=== PATIENT | female | born 1965 | race American Indian/Alaskan Native ===

== ENCOUNTER 2017-12-24 13:21 | Emergency (ER) | payer MEDICAID ==
[2017-12-24 13:22] VITALS: BMI 30.9
[2017-12-24 14:40] LABS: GRANULAR CAST 1 /lpf (0-1); SQUAMOUS EPITHIAL 3 /hpf (0-5); URINE BACTERIA RARE (<OCC); URINE BILIRUBIN NEGATIVE (NEGATIVE); URINE BLOOD NEGATIVE (NEGATIVE); URINE CLARITY Clear (Clear); URINE COLOR Yellow (YELLOW); URINE GLUCOSE (UA) 1+ mg/dL (Normal); URINE LEUKOCYTE ESTERASE NEG Leu/uL (Negative); URINE PROTEIN 1+ mg/dL (NEGATIVE)
[2017-12-24 14:43] LABS: BASO # 0.1 K/uL (0.0-0.2); BASO % 0.9 % (0.0-2.0); EOS % 0.3 % (0.0-4.0); HEMOGLOBIN 14.5 g/dL (11.0-16.0); LYMPH # 1.7 K/uL (1.0-4.3); LYMPH % 22.1 % (20.0-40.0); MEAN CELL VOLUME 103.3 fL (81.0-99.0); MEAN CORPUSCULAR HEMOGLOBIN 36.2 pg (27.0-31.0); MEAN CORPUSCULAR HGB CONC 35.1 g/dL (33.0-37.0); MEAN PLATELET VOLUME 7.6 fL (7.2-11.7); MONO # 0.4 K/uL (0.0-0.8); MONO % 5.2 % (0.0-10.0); NEUT # 5.6 K/uL (1.8-7.0); NEUT % 71.5 % (50.0-75.0); RBC 4.01 Mil/uL (3.80-5.20); RED CELL DISTRIBUTION WIDTH 13.5 % (11.5-14.5); WHITE BLOOD COUNT 7.8 K/uL (4.8-10.8)
[2017-12-24 14:49] LABS: BARBITURATES, UR NEGATIVE (NEGATIVE); BENZODIAZEPINES, UR NEGATIVE (NEGATIVE); OPIATES, UR NEGATIVE (NEGATIVE); PHENCYCLIDINE, UR NEGATIVE (NEGATIVE)
[2017-12-24 14:57] LABS: ALB/GLOB RATIO 1.3 (1.0-2.1); ALBUMIN 4.6 g/dL (3.5-5.0); ALT/SGPT 87 U/L (9-52); AST/SGOT 127 U/L (14-36); BLOOD UREA NITROGEN 6 mg/dL (7-17); CALCIUM 8.3 mg/dl (8.6-10.4); GFR AFRICAN-AMERICAN > 60; GFR NON-AFRICAN AMERICAN > 60
[2017-12-24 15:26] VITALS: BP 170/122; PULSE 91; RESP 16; TEMP 98.8; O2SAT 98
--- NOTE | 2017-12-24 15:52 | C.PDOC ---
History Of Present Illness Pt c/o feeling depressed, but denies SI. She states that she has been drinking alcohol more than usual (half a bottle of wine a day), but her last drink was 4 days ago. She has not taken her BP medications for 4 days because she is visiting her sister her and she forgot them at home. Time Seen by Provider: 12/24/17 13:53 Chief Complaint (Nursing): Psychiatric Evaluation History Per: Patient, Family Onset/Duration Of Symptoms: Days (about 2 weeks) Current Symptoms Are (Timing): Still Present Suicide/Self Injury Attempted (Context): None Modifying Factor(s): Alcohol Severity: Moderate Associated Symptoms: Depression. denies: Suicidal Thoughts, Suicidal Plan Additional History Per: Prior Records Past Medical History Reviewed: Historical Data, Nursing Documentation, Vital Signs Vital Signs: Last Vital Signs Temp 98.8 F 12/24/17 15:26 Pulse 91 H 12/24/17 15:26 Resp 16 12/24/17 15:26 BP 170/122 H 12/24/17 15:26 Pulse Ox 98 12/24/17 15:26 - Medical History PMH: Depression, Diabetes, HTN Family History: States: Unknown Family Hx - Social History Hx Tobacco Use: Yes Hx Alcohol Use: Yes Hx Substance Use: No - Immunization History Hx Tetanus Toxoid Vaccination: Yes Hx Influenza Vaccination: Yes Hx Pneumococcal Vaccination: Yes Review Of Systems Except As Marked, All Systems Reviewed And Found Negative. Constitutional: Negative for: Fever Cardiovascular: Negative for: Chest Pain Respiratory: Negative for: Shortness of Breath Gastrointestinal: Negative for: Vomiting, Abdominal Pain, Diarrhea Musculoskeletal: Negative for: Neck Pain Skin: Negative for: Rash Neurological: Negative for: Weakness, Numbness, Seizures, Altered Mental Status Psych: Positive for: Depression. Negative for: Psychosis, Suicidal ideation, Withdrawal Physical Exam - Physical Exam Appears: Non-toxic, No Acute Distress Skin: Normal Color, Warm, Dry, No Rash Head: Atraumatic, Normacephalic Eye(s): bilateral: PERRL, EOMI Neck: Normal ROM, Supple Cardiovascular: Rhythm Regular Respiratory: Normal Breath Sounds, No Accessory Muscle Use Gastrointestinal/Abdominal: Soft, No Tenderness Extremity: Normal ROM Neurological/Psych: Oriented x3, Normal Speech, Normal Cognition, Normal Motor, Normal Sensation, Other (No tremors.) Gait: Steady ED Course And Treatment - Laboratory Results Result Diagrams: 12/24/17 14:40 12/24/17 14:40 O2 Sat by Pulse Oximetry: 98 Pulse Ox Interpretation: Normal Progress Note: Pt will be referre to [facility] crisis intervention. She was given a printed sheet with information about [facility]. Reassessment Condition: Improved Medical Decision Making Medical Decision Making: No signs of alcohol withdrawal. Disposition Counseled Patient/Family Regarding: Studies Performed, Diagnosis, Need For Followup, Rx Given - Disposition Disposition: HOME/ ROUTINE Disposition Time: 15:55 Condition: IMPROVED Additional Instructions: Follow up with [facility] today. Follow up with your primary doctor. Return to the ER if you develop suicidal or homicidal thoughts, chest pain, shortness of breath, weakness, numbness, worsening of symptoms or if you have any other concerns. Prescriptions: amLODIPine [Norvasc] 10 mg PO DAILY #30 tab Metoprolol Tartrate 50 mg PO BID #60 tablet Instructions: Depression, Adult (DC) Forms: [facility] (Zambian), General Discharge Instructions - Clinical Impression Clinical Impression: Depression, Alcohol abuse, Uncontrolled hypertension
== END 2017-12-24 16:17 | disposition home or self-care (01) ==
LOC: C.ER 13:21
DX: F32.9 Major depressive disorder, single episode, unspecified (principal); F10.10 Alcohol abuse, uncomplicated; Y90.9 Presence of alcohol in blood, level not specified; I10 Essential (primary) hypertension

== ENCOUNTER 2017-12-26 00:55 | Emergency (ER) | payer MEDICAID ==
[2017-12-26 00:55] VITALS: BMI 30.9
[2017-12-26 02:07] LABS: BASO % 0.5 % (0.0-2.0); EOS # 0.1 K/uL (0.0-0.7); HEMOGLOBIN 14.3 g/dL (11.0-16.0); LYMPH # 4.4 K/uL (1.0-4.3); LYMPH % 52.7 % (20.0-40.0); MEAN CORPUSCULAR HEMOGLOBIN 35.4 pg (27.0-31.0); MEAN CORPUSCULAR HGB CONC 34.4 g/dL (33.0-37.0); MEAN PLATELET VOLUME 8.6 fL (7.2-11.7); MONO # 0.6 K/uL (0.0-0.8); MONO % 7.1 % (0.0-10.0); NEUT # 3.2 K/uL (1.8-7.0); NEUT % 38.7 % (50.0-75.0); NRBC % 0.2 % (0.0-2.0); RBC 4.04 Mil/uL (3.80-5.20); RED CELL DISTRIBUTION WIDTH 13.1 % (11.5-14.5); WHITE BLOOD COUNT 8.3 K/uL (4.8-10.8)
[2017-12-26] MEDS ORDERED: Sodium Chloride 0.9% 1,000 ML IV ONE (02:09)
[2017-12-26 02:24] LABS: ALB/GLOB RATIO 1.4 (1.0-2.1); ALBUMIN 4.3 g/dL (3.5-5.0); ALT/SGPT 56 U/L (9-52); AST/SGOT 68 U/L (14-36); BLOOD UREA NITROGEN 14 mg/dL (7-17); CALCIUM 8.4 mg/dl (8.6-10.4); GFR AFRICAN-AMERICAN > 60; GFR NON-AFRICAN AMERICAN > 60; LIPASE 299 U/L (23-300)
[2017-12-26 02:39] LABS: HCG,QUALITATIVE URINE NEGATIVE (NEGATIVE)
[2017-12-26 02:47] LABS: SQUAMOUS EPITHIAL < 1 /hpf (0-5); URINE BACTERIA RARE (<OCC); URINE BILIRUBIN NEGATIVE (NEGATIVE); URINE BLOOD NEGATIVE (NEGATIVE); URINE CLARITY Hazy (Clear); URINE COLOR Yellow (YELLOW); URINE GLUCOSE (UA) NORMAL (Normal); URINE LEUKOCYTE ESTERASE NEG Leu/uL (Negative); URINE PROTEIN NEGATIVE (NEGATIVE); URINE UROBILINOGEN NORMAL mg/dL (0.2-1.0)
[2017-12-26] MEDS ORDERED: Iodixanol 320 MG/ML 100 ML BOTTLE IV ONE (02:54)
[2017-12-26 03:06] LABS: BARBITURATES, UR NEGATIVE (NEGATIVE); BENZODIAZEPINES, UR NEGATIVE (NEGATIVE); OPIATES, UR NEGATIVE (NEGATIVE); PHENCYCLIDINE, UR NEGATIVE (NEGATIVE)
[2017-12-26 03:35] VITALS: RESP 18
--- NOTE | 2017-12-26 03:41 | C.PDOC ---
History Of Present Illness 52 year female with a Hx of chronic ETOH abuse presents to the ER with a complaint of abdominal pain associated with nausea. Patient states she has had a ventral hernia for the past 14 years, she notes it has gotten bigger and would like to have it checked out. Denies vomiting, hematemesis, or diarrhea. Patient's last ETOH intake was an hour [employer]. Time Seen by Provider: 12/26/17 01:24 Chief Complaint (Nursing): Substance Abuse History Per: Patient History/Exam Limitations: no limitations Onset/Duration Of Symptoms: Days Current Symptoms Are (Timing): Still Present Quality Of Discomfort: Unable To Describe Associated Symptoms: Nausea. denies: Vomiting, Diarrhea, Other (Hematemesis) Exacerbating Factors: None Alleviating Factors: None Recent travel outside of the [place]: No Abnormal Vaginal Bleeding: No Past Medical History Reviewed: Historical Data, Nursing Documentation, Vital Signs Vital Signs: Last Vital Signs Temp 98.4 F 12/26/17 04:47 Pulse 90 12/26/17 04:47 Resp 18 12/26/17 04:47 BP 119/79 12/26/17 04:47 Pulse Ox 98 12/26/17 04:56 - Medical History PMH: Depression, Diabetes, HTN Family History: States: Unknown Family Hx - Social History Hx Tobacco Use: Yes Hx Alcohol Use: Yes Hx Substance Use: No - Immunization History Hx Tetanus Toxoid Vaccination: Yes Hx Influenza Vaccination: Yes Hx Pneumococcal Vaccination: Yes Review Of Systems Constitutional: Negative for: Fever, Chills Cardiovascular: Negative for: Chest Pain, Palpitations Respiratory: Negative for: Cough Gastrointestinal: Positive for: Nausea. Negative for: Vomiting, Diarrhea, Hematemesis Physical Exam - Physical Exam Appears: Non-toxic, Other (ETOH on breath) Skin: Normal Color, Warm, Dry Head: Atraumatic, Normacephalic Eye(s): bilateral: Normal Inspection Oral Mucosa: Moist Chest: Symmetrical, No Tenderness Cardiovascular: Rhythm Regular Respiratory: Normal Breath Sounds, No Rales, No Rhonchi, No Wheezing Gastrointestinal/Abdominal: Bowel Sounds (Normal), Soft, No Tenderness, Other ( Scar from umbilicus to suprapubic area with large reducible ventral hernia) Neurological/Psych: Oriented x3, Normal Speech ED Course And Treatment - Laboratory Results Result Diagrams: 12/26/17 02:04 12/26/17 02:04 O2 Sat by Pulse Oximetry: 98 (Room air) Pulse Ox Interpretation: Normal - CT Scan/US CT abd/pel Other Rad Studies (CT/US): Read By Radiologist, Radiology Report Reviewed CT/US Interpretation: EXAM: CT Abdomen and Pelvis With Intravenous Contrast. CLINICAL HISTORY: 52 years old, female; Pain; Abdominal pain and other: Large ventral hernia and lower ribs pain;. Additional info: Abd pain, large ventral hernia. TECHNIQUE: Axial computed tomography images of the abdomen and pelvis with intravenous contrast. All CT. scans at this facility use one or more dose reduction techniques, viz.: automated exposure control;. ma/kV adjustment per patient size (including targeted exams where dose is matched to indication; i.e. head); or iterative reconstruction technique. Coronal and sagittal reformatted images were created and reviewed. CONTRAST: 100 mL of [id number] administered intravenously. COMPARISON: No relevant prior studies available. FINDINGS: Lung bases: Unremarkable. No mass. No consolidation. ABDOMEN: Liver: There is diffuse mild enlargement of the liver. There is a diffuse decrease in hepatic parenchymal density, consistent with fatty infiltration. Gallbladder and bile ducts: Mildly distended gallbladder. No calcified stones. No ductal dilation. Pancreas: Unremarkable. No mass. No ductal dilation. Spleen: Unremarkable. No splenomegaly. Adrenals: Unremarkable. No mass. Kidneys and ureters: Lobulated right renal contour secondary to scarring. No hydronephrosis. Stomach and bowel: There is a large broad-based ventral hernia containing bowel without evidence. of obstruction or incarceration. There are small ventral hernia containing bowel without obstruction. There are anastomotic sutures in the small bowel. There is no wall thickening or pericolonic stranding to suggest colitis. PELVIS: Appendix : A normal appendix is identified. Bladder: Unremarkable. No mass. Reproductive: Unremarkable as visualized. ABDOMEN and PELVIS: Intraperitoneal space: Unremarkable. No free air. No significant fluid collection. Bones/joints : No acute fracture. No dislocation. Vasculature: There are numerous benign phleboliths in the pelvis. No abdominal aortic. aneurysm.The vasculature demonstrates diffuse mild atherosclerotic calcification. Lymph nodes: Unremarkable. No enlarged lymph nodes. IMPRESSION: No evidence of an acute intra-abdominal or pelvic abnormality. Mild hepatomegaly with fatty infiltration. Multiple ventral hernias containing bowel without obstruction. Right renal scarring. Progress Note: CT abd/pel, blood work, and urinalysis ordered, results were negative. Protonix, zofran, and IV fluids administered. Labs and CT reviewed and d/w pt and relatives with pt'sconsent.On reevaluation, patient reports improvement of pain, she is resting comfortably in no acute distress, tolerating PO, vitals are stable. Pt's family is requesting Alcohol detox- pt is completely against that idea and became upset but remained calm. Pt will be discharged home with relatives with surgical follow up and and instructions to return if symptoms worsen. 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 - Scribe Statement The provider has reviewed the documentation as recorded by the Scribalfredito Castro All medical record entries made by the Mercedesibalfredito were at my direction and personally dictated by me. I have reviewed the chart and agree that the record accurately reflects my personal performance of the history, physical exam, medical decision making, and the department course for this patient. I have also personally directed, reviewed, and agree with the discharge instructions and disposition.
--- NOTE | 2017-12-26 04:37 | CT ---
EXAM: CT Abdomen and Pelvis With Intravenous Contrast CLINICAL HISTORY: 52 years old, female; Pain; Abdominal pain and other: Large ventral hernia and lower ribs pain; Additional info: Abd pain, large ventral hernia TECHNIQUE: Axial computed tomography images of the abdomen and pelvis with intravenous contrast. All CT scans at this facility use one or more dose reduction techniques, viz.: automated exposure control; ma/kV adjustment per patient size (including targeted exams where dose is matched to indication; i.e. head); or iterative reconstruction technique. Coronal and sagittal reformatted images were created and reviewed. CONTRAST: 100 mL of [id number] administered intravenously. COMPARISON: No relevant prior studies available. FINDINGS: Lung bases: Unremarkable. No mass. No consolidation. ABDOMEN: Liver: There is diffuse mild enlargement of the liver. There is a diffuse decrease in hepatic parenchymal density, consistent with fatty infiltration. Gallbladder and bile ducts: Mildly distended gallbladder. No calcified stones. No ductal dilation. Pancreas: Unremarkable. No mass. No ductal dilation. Spleen: Unremarkable. No splenomegaly. Adrenals: Unremarkable. No mass. Kidneys and ureters: Lobulated right renal contour secondary to scarring. No hydronephrosis. Stomach and bowel: There is a large broad-based ventral hernia containing bowel without evidence of obstruction or incarceration. There are small ventral hernia containing bowel without obstruction. There are anastomotic sutures in the small bowel. There is no wall thickening or pericolonic stranding to suggest colitis. PELVIS: Appendix: A normal appendix is identified. Bladder: Unremarkable. No mass. Reproductive: Unremarkable as visualized. ABDOMEN and PELVIS: Intraperitoneal space: Unremarkable. No free air. No significant fluid collection. Bones/joints: No acute fracture. No dislocation. Vasculature: There are numerous benign phleboliths in the pelvis. No abdominal aortic aneurysm.The vasculature demonstrates diffuse mild atherosclerotic calcification. Lymph nodes: Unremarkable. No enlarged lymph nodes. IMPRESSION: No evidence of an acute intra-abdominal or pelvic abnormality. Mild hepatomegaly with fatty infiltration. Multiple ventral hernias containing bowel without obstruction. Right renal scarring.
[2017-12-26 04:49] VITALS: BP 119/79; PULSE 90; TEMP 98.4
[2017-12-26 04:56] VITALS: O2SAT 98
== END 2017-12-26 04:54 | disposition home or self-care (01) ==
LOC: C.ER 00:55
DX: K29.20 Alcoholic gastritis without bleeding (principal); K43.9 Ventral hernia without obstruction or gangrene; R10.9 Unspecified abdominal pain; E11.9 Type 2 diabetes mellitus without complications; I10 Essential (primary) hypertension; Z72.0 Tobacco use
CPT/HCPCS: 74177; 80053; 80324; 80345; 80346; 80349; 80353; 80358; 80361; 81001; 82948; 83690; 83992; 84703; 85025; 96361; 96374; 96375; 99285; C9113; J2405; J7030; Q9967